=== PATIENT | male | born 1970 | race Caucasian/White ===

== ENCOUNTER 2023-11-22 13:27 | Inpatient (IN) ==
--- NOTE | 2023-11-22 13:34 | ED Triage Note ---
Date of Service November 22, 2023 Provider in Triage Author: Shashi Mccord History of Present Illness This patient was briefly evaluated while in triage. An abbreviated physical exam was performed. This patient is a 53-year-old Male who presents to the ED for evaluation from [facility] n/v/d, abdominal pain x 2 weeks admitted to [facility] x 3 days, given IVF, Zofran, Imodium without improvement creatine reportedly elevated today at 5.5 Physical Exam GENERAL: NAD in wheelchair CARDIOVASCULAR: RRR RESPIRATORY: CTA ABDOMEN: BS x 4. Nontender to palpation. Initial orders for labs and / or imaging were placed and patient was placed in the waiting area until a bed is available. Please see further documentation for the full ED course.
[2023-11-22] MEDS: ONDANSETRON INJ 2 MG/ML 2 ML VIAL IV STA (14:13)
[2023-11-22] MEDS: SODIUM CHLORIDE 0.9% 1,000 ML IV ONE (14:13)
[2023-11-22 14:41] LABS: Basophils # (auto) 0.04 K/uL (0.00-0.20); Basophils % (auto) 0.3 %; Eosinophils # (auto) 0.05 K/uL (0.00-0.50); Eosinophils % (auto) 0.4 %; Hematocrit (blood only) 36.6 % (42.0-52.0); Hemoglobin 12.7 g/dl (14.0-18.0); Immature Granulocytes # (auto) 0.14 K/uL (0.01-0.20); Lymphocytes # (auto) 1.92 K/uL (1.20-3.40); Lymphocytes % (auto) 13.5 %; Mean Corpuscular Hemoglobin 28.8 pg (25.0-34.0); Mean Corpuscular Hgb Conc 34.7 g/dL (32.0-36.0); Mean Platelet Volume 10.6 fL (9.4-12.4); Monocytes # (auto) 1.27 K/uL (0.11-0.59); Monocytes % (auto) 8.9 %; Neutrophils # (auto) 10.78 K/uL (1.40-6.50); Neutrophils % (auto) 75.9 %; Platelet Count 267 K/uL (130-400); RDW Coefficient of Variation 12.1 % (11.5-14.5); RDW Standard Deviation 36.8 fL (36.4-46.3); Red Blood Count 4.41 M/uL (4.70-6.10)
--- NOTE | 2023-11-22 15:05 | Emergency Department Note ---
Impression & Plan BIANKA (acute kidney injury), Vomiting and diarrhea, Acute hyperkalemia, Anemia, Leukocytosis ED Provider Note NAME: AMY [id number] SHANNAN AGE: 53 SEX: M : 1970 ARRIVES VIA: Walk-In INFORMANT: [Patient] ED PROVIDER(S): [Juan Carlos Mead MD] CHIEF COMPLAINT: Dehydration, renal failure HISTORY OF PRESENT ILLNESS: The patient is a 53-year-old male who presents to the ER with 2 weeks of vomiting and diarrhea. He stumbled and fell a few days ago, he does not think he lost consciousness. He was seen at the [facility] and given IV saline. The patient did not really feel much better, he has been weak and washed out. He persists with vomiting and diarrhea. The patient had lab work done today outpatient showing a creatinine of over 5, he has no history of kidney issues. Because of the renal failure, he was sent to the hospital for evaluation. There has been a potential fever the last few weeks intermittently. He has not had chest pain or cough or abdominal pain. He is still making urine although it is quite dark in appearance. PMHx/PSHx/Social Hx: See Below PHYSICAL EXAM: GENERAL: Patient is in no acute distress. HEENT: No acute trauma, normocephalic atraumatic, mucous membranes moist, no nasal congestion. NECK: No stridor, no adenopathy, no meningismus, trachea is midline. LUNGS: Clear to auscultation bilaterally, no wheeze, no rhonchi, breath sounds equal. HEART: Mildly tachycardic, regular rhythm, no murmurs. ABDOMEN: Soft, nontender, no peritonitis. EXTREMITIES: No cyanosis, full range of motion of all the joints without pain or difficulty. NEUROLOGIC: Oriented x 3, no acute motor or sensory deficits, no focal weakness. SKIN: No jaundice, no diaphoresis. Somewhat pale. DIFFERENTIAL DIAGNOSIS: Viral illness, dehydration, renal failure, electrolyte imbalance, C. difficile colitis, medication interaction, among others. EMERGENCY DEPARTMENT PROCEDURES: MEDICAL DECISION MAKING: There is a moderate leukocytosis, this would be consistent with infection. There is a mild anemia present. There is a normal platelet count. Renal panel testing shows acute kidney injury with a creatinine of 4.5. BUN was elevated consistent with dehydration and acute kidney injury. Potassium was elevated at 5.2 however, the value was not in need of emergent correction. Lactic acid level was not elevated making sepsis less likely. There was no concerning liver enzyme elevation. Total CK was not elevated making rhabdomyolysis unlikely. Lipase was slightly elevated at 122. Urinalysis showed some protein and blood, no findings of infection. Chest x-ray did not show CHF or pneumonia. Abdominal and pelvis CT did not show any evidence for hydronephrosis or urinary obstruction. Potential inflammation of the pancreas was seen. The patient was given IV saline, 1 L. He received IV Zofran for nausea. The patient was aggressively managed and watched here in the ED as he did have acute renal failure with some hyperkalemia. He has done well with treatment though and seems to feel improved with the medications prescribed. I did speak with nephrology on-call. There is no need for emergent dialysis. The patient should be hydrated as his renal failure is likely secondary to dehydration. I did speak with case management, I spoke with the patient, the on-call hospitalist was consulted. Prior/Outside records/notes reviewed: Today's nursing home documentation describing his complaints and laboratory findings and the need for an ER referral. ECG per my interpretation: Indication was renal failure. The ECG shows a sinus tachycardia with a rate of 110. There is no acute ST elevation, there were no PVCs. The QTc was 484. Continuous Cardiac Monitoring per my interpretation: An order was placed for continuous cardiac monitoring. The monitor shows a rate of 102 with sinus tachycardia. Imaging/x-ray results per my interpretation: Chest x-ray does not show mediastinal widening, pneumonia or pneumothorax. Chronic Medical/Social conditions affecting care: Currently incarcerated Care/Management discussed with: Case management, the on-call hospitalist. Nephrology on-call-Dr. Briones. Level of care consideration(s): After review of the information above and other included data: --I believe the patient requires escalation of care to admission Critical Care Note: I have personally spent 41 minutes of critical care time in the direct management of this patient. This includes bedside care, interpretation of diagnostic studies, and testing, discussion with consultants, patient, and family members, and other required patient management activities. This 41 minutes is in excess of all separately billable procedures. DISPOSITION: Admission Past Med/Surg History Problem List (Updated 11/22/23 @ 22:23 by Juan Carlos Mead MD) Leukocytosis (Acute) Anemia (Acute) Acute hyperkalemia (Acute) Vomiting and diarrhea (Acute) BIANKA (acute kidney injury) (Acute) Hyperkalemia Medical History Acute kidney injury Social History Smoking Status: Former smoker Second Hand Exposure: No; Do You Dip or Chew Tobacco: No; Hx Alcohol Use: No Hx Substance Use: No Preferred Language: Japanese Communication Ability: Effective Claim Clinician Required: No Beliefs That Will Affect Care: None Current Living Situation: Other Current Living Situation Comment: inmate in nursing home Feels Safe at Home: Yes Assistive Devices: None Allergies Allergies Allergy/AdvReac Type Severity Reaction Status Date / Time No Known Allergies Allergy Unverified 11/22/23 16:09 Results & Data (ED) Vital Signs Vital Signs - 24 hr 11/22/23 13:32 11/22/23 14:03 11/22/23 14:13 Temperature 36.0 C L Temperature Source Temporal Artery Scan Pulse Rate 110 H 102 H Pulse Rate [Right Finger] 92 H Pulse Rhythm Regular Pulse Strength Normal Respiratory Rate 18 20 Respiratory Effort / Characteristics Non-Labored Spontaneous Non-Labored Respiratory Depth Normal Normal Respiratory Pattern Regular Blood Pressure 105/78 Blood Pressure [Right Arm] 127/88 Blood Pressure Mean 87 Blood Pressure Mean [Right Arm] 101 Blood Pressure Position Sitting Pulse Oximetry 95 97 Oxygen Delivery Method Room Air Room Air Oxygen Flow Rate Sepsis Recent Fever Within 48 Hours No Sepsis New/Unexplained Change in Mental Status No Sepsis Action Taken by Nursing No Action Required 11/22/23 14:42 Temperature Temperature Source Pulse Rate Pulse Rate [Right Finger] Pulse Rhythm Pulse Strength Respiratory Rate Respiratory Effort / Characteristics Respiratory Depth Respiratory Pattern Blood Pressure Blood Pressure [Right Arm] Blood Pressure Mean Blood Pressure Mean [Right Arm] Blood Pressure Position Pulse Oximetry 94 Oxygen Delivery Method Nasal Cannula Oxygen Flow Rate 2 Sepsis Recent Fever Within 48 Hours Sepsis New/Unexplained Change in Mental Status Sepsis Action Taken by Skilled Nursing Medications Current Medication List: was personally reviewed by me Laboratory Data Attestation: I reviewed the patient's lab results. 11/22/23 17:11 11/22/23 17:11 Lab Results 11/22/23 Range/Units 14:24 WBC 14.20 H (4.8-10.8) K/ul RBC 4.41 L (4.70-6.10) M/uL Hgb 12.7 L (14.0-18.0) g/dl Hct 36.6 L (42.0-52.0) % MCV 83.0 (80.0-100.0) fL MCH 28.8 (25.0-34.0) pg MCHC 34.7 (32.0-36.0) g/dL RDW Std Deviation 36.8 (36.4-46.3) fL RDW Coeff of Sumi 12.1 (11.5-14.5) % Plt Count 267 (130-400) K/uL MPV 10.6 (9.4-12.4) fL Immature Gran % (Auto) 1.0 % Neut % (Auto) 75.9 % Lymph % (Auto) 13.5 % [place] % (Auto) 8.9 % Eos % (Auto) 0.4 % Baso % (Auto) 0.3 % Neut # (Auto) 10.78 H (1.40-6.50) K/uL Lymph # (Auto) 1.92 (1.20-3.40) K/uL [place] # (Auto) 1.27 H (0.11-0.59) K/uL Eos # (Auto) 0.05 (0.00-0.50) K/uL Baso # (Auto) 0.04 (0.00-0.20) K/uL Immature Gran # (Auto) 0.14 (0.01-0.20) K/uL Sodium 137 (136-145) mmol/L Potassium 5.2 H (3.5-5.1) mmol/L Chloride 104 (98-107) mmol/L Carbon Dioxide 23 (21-32) mmol/L Anion Gap 10 (3-11) BUN 121 H D (6-23) mg/dl Creatinine 4.54 H* D (0.6-1.4) mg/dl Est Cr Clr Drug Dosing 23.9 ml/min Est GFR ( Amer) 15.9 ml/min Est GFR (Non-Af Amer) 13.7 ml/min BUN/Creatinine Ratio 26.7 H (10-20) Glucose 185 H (70-99(Fasting)) mg/dl Calcium 9.5 (8.6-10.3) mg/dl Phosphorus 4.1 (2.5-4.9) mg/dl Magnesium 1.8 (1.7-2.4) mg/dl Total Bilirubin 0.8 (0.2-1.0) mg/dl AST 24 (13-39) U/L ALT 33 (7-52) U/L Alkaline Phosphatase 76 (34-104) U/L Total Creatine Kinase 102 (30-223) U/L Troponin I High Sens 10.1 (0-20) pg/ml Total Protein 7.8 (6.0-8.3) gm/dl Albumin 4.3 (3.4-5.0) gm/dl Globulin 3.5 (2.5-4.0) gm/dl Albumin/Globulin Ratio 1.2 (0.9-2) Lipase 122 H (11-82) U/L Administered Medications Sodium Chloride (Nss) 1,000 mls @ 100 mls/hr IV .Q10H MIKEL Stop: 12/22/23 15:29 Last Admin: 11/22/23 18:31 Dose: 100 mls/hr Documented By: NICHOLAS Pantoprazole Sodium 40 mg/ (Syringe) 10 mls @ 5 mls/min IV Q12H MIKEL Stop: 12/22/23 16:59 Last Admin: 11/22/23 18:31 Dose: 5 mls/min Documented By: NICHOLAS Discontinued Medications Sodium Chloride (Nss) 1,000 mls @ 999 mls/hr IV .Q1H1M ONE Stop: 11/22/23 15:03 Last Infusion: 11/22/23 19:37 Dose: Infused Documented By: Admin: 11/22/23 14:13 Dose: 999 mls/hr Documented By: WILNER Miscellaneous Information (Patient's Allergy Info Needs Entered) 1 each N/A NOW STA Stop: 11/22/23 15:26 Last Admin: 11/22/23 16:15 Dose: 1 each Documented By: EMELYN Ondansetron HCl (Ondansetron Inj 2 Mg/Ml 2 Ml Vial) 4 mg IV NOW STA Stop: 11/22/23 14:04 Last Admin: 11/22/23 14:13 Dose: 4 mg Documented By: WILNER Imaging Data Radiologist's Impression: Abdomen/Pelvis CT 11/22/23 14:[address] WITHOUT CONTRAST CT DOSE: 1506.95 mGy.cm HISTORY: Acute renal failure with nausea and vomiting renal failure TECHNIQUE: Multiaxial CT images of the abdomen and pelvis were performed without contrast. A dose lowering technique was utilized adhering to the principles of ALARA. COMPARISON STUDY: None. FINDINGS: Coronary artery calcifications. Trace right pleural effusion. Mild basilar atelectasis. No free air. The unenhanced spleen, gallbladder and adrenal glands are unremarkable. There is subtle inflammatory stranding involving the pancreatic tail. No pancreatic ductal dilation. Mild hepatic steatosis without evidence of cirrhosis or mass. Mild lung bilateral perinephric stranding. No urolith or hydronephrosis. Atherosclerosis of the aorta. No lymphadenopathy. Mild to moderate distal esophageal wall thickening with adjacent inflammatory stranding. No bowel obstruction or bowel wall thickening. No ascites or mesenteric inflammation. Normal appendix. Small fat filled umbilical hernia. There is no acute fracture identified. Chronic-appearing superior endplate compression/Schmorl's node at L3. Avascular necrosis of the femoral heads without articular collapse. IMPRESSION: 1. No bowel obstruction or bowel wall thickening. 2. Normal appendix. 3. Equivocal acute pancreatitis involving the pancreatic tail. Correlate with serum lipase. 4. Distal esophageal wall thickening suspicious for esophagitis. 5. Trace right pleural effusion with mild right basilar atelectasis. 6. Avascular necrosis of the femoral heads. ACT 112: Negative or not required by law. The above report was generated using voice recognition software. It may contain grammatical, syntax or spelling errors. Electronically signed by: Ralph Baldwin M.D. 11/22/2023 3:42 PM Chest X-Ray 11/22/23 14:03 XR chest 1V portable CLINICAL HISTORY: poss chf TECHNIQUE: Single frontal radiograph of the chest was obtained. Comparison: None available at the time of this dictation. FINDINGS: Exam is limited by underpenetration. The cardiomediastinal silhouette is normal. The lungs are clear. No evidence of pleural effusion or pneumothorax. IMPRESSION: No evidence of CHF. ACT 112: Negative or not required by law. Electronically signed by: Vickey Alegria M.D. 11/22/2023 3:25 PM Discharge Plan Visit Data Chief Complaint: Dehydration Stated Complaint: RENAL FAILURE, SYNCOPE DEHYDRATION ED Provider: Juan Carlos Mead Discharge Problem: BIANKA (acute kidney injury), Vomiting and diarrhea, Acute hyperkalemia, Anemia, Leukocytosis Patient Disposition: Admitted As Inpatient Condition: Fair Discharge Instructions Interventions: ED Discharge Assessment Last Done: 11/22/23 16:15 Discharge Problem: Anemia Qualifiers: Anemia type: unspecified type Qualified Code(s): D64.9 - Anemia, unspecified Leukocytosis Qualifiers: Leukocytosis type: unspecified Qualified Code(s): D72.829 - Elevated white blood cell count, unspecified
[2023-11-22 15:08] LABS: Albumin Globulin Ratio 1.2 (0.9-2); Albumin Level 4.3 gm/dl (3.4-5.0); BUN Creatinine Ratio 26.7 (10-20); Bilirubin,Total 0.8 mg/dl (0.2-1.0); Calcium 9.5 mg/dl (8.6-10.3); Creatinine Clr Calc Pharmacy 23.9 ml/min; Est GFR (African American) 15.9 ml/min; Est GFR (Non-African American) 13.7 ml/min; Globulin 3.5 gm/dl (2.5-4.0); Magnesium 1.8 mg/dl (1.7-2.4); Phosphorus 4.1 mg/dl (2.5-4.9); Potassium 5.2 mmol/L (3.5-5.1); Total Protein 7.8 gm/dl (6.0-8.3)
[2023-11-22] MEDS ORDERED: DEXTROSE 50% 50 ML SYRINGE IV PRN (15:16)
[2023-11-22] MEDS ORDERED: CARBOHYDRATES FOR HYPOGLYCEMIA PO PRN (15:16)
[2023-11-22] MEDS ORDERED: GLUCAGON FOR INJ 1 MG VIAL SQ PRN (15:16)
[2023-11-22] MEDS ORDERED: GLUCOSE 10 TAB/TUBE PO PRN (15:16)
[2023-11-22] MEDS ORDERED: GLUCOSE 40% GEL 15 GM TUBE PO PRN (15:16)
[2023-11-22] MEDS ORDERED: ACETAMINOPHEN 325 MG TAB PO PRN (15:21)
[2023-11-22] MEDS ORDERED: MAGNESIUM HYDROXIDE SUSP 30 ML UDC PO PRN (15:21)
--- NOTE | 2023-11-22 15:26 | XRay Report ---
XR chest 1V portable CLINICAL HISTORY: poss chf TECHNIQUE: Single frontal radiograph of the chest was obtained. Comparison: None available at the time of this dictation. FINDINGS: Exam is limited by underpenetration. The cardiomediastinal silhouette is normal. The lungs are clear. No evidence of pleural effusion or pneumothorax. IMPRESSION: No evidence of CHF. ACT 112: Negative or not required by law. Electronically signed by: Vickey Alegria M.D. 11/22/2023 3:25 PM
--- NOTE | 2023-11-22 15:31 | History & Physical Report ---
Date of Service November 22, 2023 Assessment & Plan (1) Acute kidney injury: Plan: Assessment: 1. Acute kidney injury. Suspected to be prerenal due to hypovolemia and dehydration due to GI illness. Hydrate aggressively. Stat bladder scan. Maloney catheter if necessary. Consult nephrology. Hold all nephrotoxic agents. Repeat renal function later today and again in the morning. 2. Mild hyperkalemia 5.2. Monitor. Hydrate. 3. GI illness consistent with nausea vomiting and diarrhea. Stool cultures are ordered and pending. CT of the abdomen pelvis is ordered and pending. These will need followed up on. Keep patient n.p.o. for now. Check lactic acid l evel. 4. Diabetes mellitus type 2 [id number]. A1c ordered for the a.m. Accu-Cheks every 4 hours. Physician will be notified if less than 80 or greater than 180 for intervention. 5. GERD. IV Protonix has been ordered. IV Zofran ordered. 6. Dyslipidemia. On statin therapy. 7. Mildly elevated lipase probably secondary to decreased clearance due to acute kidney injury. Recheck lipase in the morning. Await CT scan. 8. Anemia. Unknown etiology. Monitor carefully as mild. Will check stools for blood and iron studies. Plan: As discussed above. Please refer to orders for further planning. History of Present Illness Chief Complaint: Acute kidney injury: Nausea, vomiting, diarrhea. Primary Care Provider: JOSETTE Roy This is a 53-year-old male who is an inmate at one of the local presents who has had a 4 to 5-day history of nausea vomiting diarrhea. He was treated at the [facility] with conservative measures. Laboratory studies were obtained today that showed a creatinine greater than 5 with no known previous kidney disease. He was sent to the ER for further evaluation and treatment. Laboratory studies here showed a white count of 14.2. A hemoglobin of 12.7. Potassium 5.2. BUN and creatinine of 121 and 4.54 respectively. Earlier this morning the patient's creatinine was 5.58. Lipase was mildly elevated at 122. CT of the abdomen pelvis was ordered patient to get to go to CT prior to us being called for admission. In addition to stay cultures were ordered after antegradely collecting urine above for infection. Regarding that the patient. Consult nephrology. Hydrate aggressively. Await CT of the abdomen pelvis. We have also recommended a stat lactic acid level. Will repeat a BMP later this afternoon. And await input from nephrology has been consulted via the ER. On review the patient's MAR from the [facility] from the [facility]. It does not appear he is on any nephrotoxic agents. There are no other residents ill with GI illness per the records. Past medical history: Positive for dyslipidemia, diabetes mellitus type 2 [id number], GERD,. Past surgical history: Negative. Social history: [facility] There is no active use of alcohol tobacco or illicit street drugs. Family medical history: Obtained and noncontributory to present illness. CODE STATUS DO NOT RESUSCITATE. The patient is alert and oriented x 3. He states under no circumstances would he want cardiopulmonary resuscitation mechanical ventilation or defibrillation or cardioversion. Therefore per his wishes he is a DNR. Past Med/Surg History Problem List (Updated 11/22/23 @ 15:28 by Joseph Jacobson, PhD, DO) Acute kidney injury Social History Smoking Status: Never smoker Preferred Language: Omani Feels Safe at Home: Yes Review of Systems Review of Systems: A 10 point review of system was obtained and unless otherwise stated here or in history of present illness are negative and noncontributory to chief complaint. Physical Exam Physical Exam: In General: In general this is a 53-year-old male is alert and oriented x 3 at the time my exam accompanied by 2 armed guards at the time of my examination. He only mitts to mild "stomachache" and nausea. No yomaira pain. He denies any other symptomatology except feeling thirsty. HEENT: Normocephalic atraumatic pupils are equal round and reactive to light bilaterally. No scleral icterus no conjunctival injection external auditory canals are patent septum is in the midline nose is without discharge oral mucosa is pink and dry without lesion. NECK: Supple no rigidity no lymphadenopathy no thyromegaly no carotid bruits no JVD no masses. HEART: Regular rate and rhythm I do not appreciate any ectopy or rub. No murmur. LUNGS: Clear to auscultation bilaterally and anteriorly with no evidence of adventitious sounds/wheezes rales or rhonchi. ABDOMEN: Soft nontender, no rebound, no peritoneal signs, positive bowel sounds, no appreciable organomegaly. EXTREMITIES: Intact, no peripheral cyanosis, clubbing or edema. Strength is 5 out of 5 in extremities x4, no pathological reflexes. NEUROLOGICAL: Cranial nerves II through XII are grossly intact with no focal deficit elicited upon examination. No tremor. Results & Data Results & Data Vital Signs (Past 12 Hours) Vital Signs Temp Pulse Pulse Resp BP BP Pulse Ox 11/22/23 14:42 94 11/22/23 14:13 102 H 11/22/23 14:03 92 H 20 127/88 97 11/22/23 13:32 36.0 C L 110 H 18 105/78 95 O2 Del Method O2 Flow Rate 11/22/23 14:42 Nasal Cannula 2 11/22/23 14:13 11/22/23 14:03 Room Air 11/22/23 13:32 Room Air Code Status & VTE Plan Code Status CODE STATUS: DO NOT RESUSCITATE as discussed above under historical. VTE Prophylaxis Plan VTE Prophylaxis will be ordered: Yes PG Care Time/CCT Total # of Minutes Spent Total Time Spent with Patient: Total time spent is greater than 50% in coordination of care (as documented) at patient's floor/unit and/or counseling patient: Coding Level of Care Code 84761 INT INP/OBS CARE 3/75MIN Diagnoses Acute kidney injury N17.9
--- NOTE | 2023-11-22 15:38 | Electrocardiogram Report ---
Test Reason : Blood Pressure : */* mmHG Vent. Rate : 110 BPM Atrial Rate : 110 BPM P-R Int : 144 ms QRS Dur : 90 ms QT Int : 358 ms P-R-T Axes : 8 -38 7 degrees QTcB Int : 484 ms Sinus tachycardia Left axis deviation RSR' or QR pattern in V1 suggests right ventricular conduction delay Abnormal ECG No previous ECGs available Confirmed by Matteo Maurice ([id number]) on 11/22/2023 3:38:11 PM Referred By: Confirmed By: Matteo Maurice
--- NOTE | 2023-11-22 15:43 | CT Scan Report ---
ABDOMEN AND PELVIS CT WITHOUT CONTRAST CT DOSE: 1506.95 mGy.cm HISTORY: Acute renal failure with nausea and vomiting renal failure TECHNIQUE: Multiaxial CT images of the abdomen and pelvis were performed without contrast. A dose lo wering technique was utilized adhering to the principles of ALARA. COMPARISON STUDY: None. FINDINGS: Coronary artery calcifications. Trace right pleural effusion. Mild basilar atelectasis. No free air. The unenhanced spleen, gallbladder and adrenal glands are unremarkable. There is subtle inf lammatory stranding involving the pancreatic tail. No pancreatic ductal dilation. Mild hepatic steato sis without evidence of cirrhosis or mass. Mild lung bilateral perinephric stranding. No urolith or hydronephrosis. Atherosclerosis of the aorta . No lymphadenopathy. Mild to moderate distal esophageal wall thickening with adjacent inflammatory s tranding. No bowel obstruction or bowel wall thickening. No ascites or mesenteric inflammation. Elizabeth l appendix. Small fat filled umbilical hernia. There is no acute fracture identified. Chronic-appeari ng superior endplate compression/Schmorl's node at L3. Avascular necrosis of the femoral heads withou t articular collapse. IMPRESSION: 1. No bowel obstruction or bowel wall thickening. 2. Normal appendix. 3. Equivocal acute pancreatitis involving the pancreatic tail. Correlate with serum lipase. 4. Distal esophageal wall thickening suspicious for esophagitis. 5. Trace right pleural effusion with mild right basilar atelectasis. 6. Avascular necrosis of the femoral heads. ACT 112: Negative or not required by law. The above report was generated using voice recognition software. It may contain grammatical, syntax o r spelling errors. Electronically signed by: Ralph Baldwin M.D. 11/22/2023 3:42 PM
--- NOTE | 2023-11-22 15:55 | Nephrology Consultation ---
Date of Consultation November 22, 2023 Assessment & Plan (1) Acute kidney injury: (2) Hyperkalemia: Plan 53-year-old gentleman admitted with acute kidney injury most likely secondary to volume depletion with 2 weeks history of vomiting and diarrhea. No prior history of CKD, initially creatinine was 5.6 mg/dl which already improved to 4.5, has mild electrolyte abnormality including hyperkalemia and metabolic acidosis which also improved. Urinalysis pending. CT abdomen pelvis without contrast with no significant postrenal obstruction. -- Continue on IV fluid, encourage p.o. intake as able, once NPO status removed. -- Check CPK -- Waiting for urinalysis to check for any evidence of significant proteinuria or hematuria suggestive of any intrinsic renal vasculitis although seems unlikely as creatinine already started to improve, blood pressure well- controlled and no sign of systemic vasculitis. -- avoid RICHARD inhibitor/ARB/aldosterone antagonist at this time Thank you for the consultation to care for Mr. Olson. History of Present Illness Reason for Consultation: Acute kidney injury, hyperkalemia. History of Present Illness Mr. Cornelius Olson is a 53-year-old male with no history of CKD, past medical history significant for hypertension, diabetes, dyslipidemia and GERD admitted to the hospital with acute kidney injury, volume depletion and hyperkalemia. Nephrology consult requested for management of BIANKA and hyperkalemia. EMR records were reviewed in detail during patient's visit. [facility] with history of nausea, vomiting and diarrhea for 2 weeks. He was getting treated conservatively at the [facility] however he was brought to ER today with ongoing symptoms and concern for volume depletion and generalized weakness. Lab in ER initially showed mild leukocytosis, WBC 14.2, hemoglobin 12.7. Creatinine 5.6 mg/dl, BUN 141, potassium 5.[address] abdomen pelvis without postrenal obstruction. Questionable pancreatitis on CT and mildly elevated lipase, normal lactate, LFT. Urinalysis pending. Blood pressure has been acceptable without significant hypotension. No h/o Regular NSAID use, diuretics, ACEI/ARB. No h/o UTI, nephrolithiasis. Clinically he was noted to be volume depleted and started on IV normal saline. Stool study pending. Non smoker. No known family history of CKD, ESKD. Past medical history is significant for type 2 diabetes, dyslipidemia and GERD. Repeat lab done this afternoon showing slight improvement in kidney function, creatinine down to 4.5, BUN 121 but potassium remains slightly elevated at 5.2. Blood pressure acceptable. Overall continues to feel poorly, reports voiding as usual. 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 Beliefs That Will Affect Care: None Current Living Situation: Other Current Living Situation Comment: inmate in jail Feels Safe at Home: Yes Assistive Devices: None Review of Systems Review of Systems: All systems reviewed & are unremarkable except as noted in Subjective Physical Exam Constitutional: WD/WN, vitals as above no acute distress Eyes: + anicteric sclerae Neck: normal visual inspection Respiratory: no respiratory distress Auscultation: lungs clear to auscultation bilaterally Cardiovascular: RRR, no murmur, no edema Gastrointestinal (Abdomen): Inspection/Auscultation: abdomen normal to inspection Percussion/Palpation: abdomen soft; abdomen nontender Musculoskeletal: Extremities: extremities normal to inspection Skin: no rashes, warm and dry Neurologic: no focal motor deficits and not confused Psychiatric: Orientation: alert and oriented x 3 Affect: euthymic affect Results & Data Vital Signs (Past 12 Hours) Vital Signs Temp Pulse Pulse Resp BP BP Pulse Ox 11/22/23 14:42 94 11/22/23 14:13 102 H 11/22/23 14:03 92 H 20 127/88 97 11/22/23 13:32 36.0 C L 110 H 18 105/78 95 O2 Del Method O2 Flow Rate 11/22/23 14:42 Nasal Cannula 2 11/22/23 14:13 11/22/23 14:03 Room Air 11/22/23 13:32 Room Air PG Care Time/CCT Total # of Minutes Spent Total Time Spent with Patient: Total time spent is greater than 50% in coordination of care (as documented) at patient's floor/unit and/or counseling patient: Coding Level of Care Code 15748 INT INP/OBS CARE 3/75MIN Diagnoses Acute kidney injury N17.9 Hyperkalemia E87.5
[2023-11-22 15:59] LABS: Troponin I High Sensitivity 10.1 pg/ml (0-20)
[2023-11-22 16:05] LABS: Appearance Urine Clear (Clear); Bacteria Urine Automated None Seen (None Seen); Bilirubin Urine Negative (Negative); Blood Urine Trace (Negative); Cast Urine Automated 0-2 /lpf (0-2); Color Urine Yellow; Epithelial Cell Urine Auto 0-2 /hpf (0-2); Glucose Urine UA 2+ (Negative); Ketones Urine Negative (Negative); Leukocyte Esterase Urine Negative (Negative); Nitrite Urine Negative (Negative); Protein Urine 1+ (Negative); RBC Urine Automated 0-2 /hpf (0-2); Specific Gravity Urine 1.017 (1.000-1.030); Urobilinogen Urine Negative (Negative); WBC Urine Automated 0-5 /hpf (0-5); pH Urine 5.5 (4.5-7.5)
[2023-11-22] MEDS: Patient's ALLERGY Info needs ENTERED STA (16:15)
[2023-11-22 17:30] LABS: Hemoglobin 12.5 g/dl (14.0-18.0)
[2023-11-22 17:45] LABS: Potassium 4.5 mmol/L (3.5-5.1)
[2023-11-22 17:46] LABS: BUN Creatinine Ratio 28.9 (10-20); Calcium 9.5 mg/dl (8.6-10.3); Creatinine Clr Calc Pharmacy 26.5 ml/min; Est GFR (African American) 18.1 ml/min; Est GFR (Non-African American) 15.6 ml/min
[2023-11-22] MEDS: SODIUM CHLORIDE 0.9% 1,000 ML IV SCH (18:31)
[2023-11-22] MEDS: PANTOprazole 40 MG in SYRINGE 0 ML IV SCH (18:31)
[2023-11-23 06:47] LABS: Basophils # (auto) 0.03 K/uL (0.00-0.20); Basophils % (auto) 0.3 %; Eosinophils # (auto) 0.05 K/uL (0.00-0.50); Eosinophils % (auto) 0.4 %; Hematocrit (blood only) 35.4 % (42.0-52.0); Hemoglobin 12.3 g/dl (14.0-18.0); Immature Granulocytes # (auto) 0.12 K/uL (0.01-0.20); Lymphocytes # (auto) 2.13 K/uL (1.20-3.40); Lymphocytes % (auto) 18.5 %; Mean Corpuscular Hemoglobin 29.1 pg (25.0-34.0); Mean Corpuscular Hgb Conc 34.7 g/dL (32.0-36.0); Mean Corpuscular Volume 83.9 fL (80.0-100.0); Monocytes # (auto) 0.93 K/uL (0.11-0.59); Monocytes % (auto) 8.1 %; Neutrophils # (auto) 8.25 K/uL (1.40-6.50); Neutrophils % (auto) 71.7 %; Platelet Count 251 K/uL (130-400); RDW Coefficient of Variation 12.2 % (11.5-14.5); RDW Standard Deviation 37.1 fL (36.4-46.3); Red Blood Count 4.22 M/uL (4.70-6.10); White Blood Count 11.51 K/ul (4.8-10.8)
[2023-11-23 07:07] LABS: Estimated Average Glucose 177 mg/dl; Hemoglobin A1C 7.8 % (4.5-5.6)
[2023-11-23 07:11] LABS: Albumin Globulin Ratio 1.3 (0.9-2); Albumin Level 4.2 gm/dl (3.4-5.0); BUN Creatinine Ratio 28.1 (10-20); Bilirubin,Total 0.8 mg/dl (0.2-1.0); Calcium 9.3 mg/dl (8.6-10.3); Chol HDL Ratio 4.1 (0-5); Est GFR (African American) 25.2 ml/min; Est GFR (Non-African American) 21.8 ml/min; Globulin 3.3 gm/dl (2.5-4.0); Potassium 4.8 mmol/L (3.5-5.1); Total Protein 7.5 gm/dl (6.0-8.3)
[2023-11-23 07:24] LABS: Thyroid Stimulating Hormone 2.608 uIu/ml (0.300-4.500)
[2023-11-23] MEDS ORDERED: PANTOprazole 40 MG in SYRINGE 0 ML IV SCH (11:00)
--- NOTE | 2023-11-23 11:43 | Nephrology Progress Note ---
Date of Service November 23, 2023 Assessment & Plan (1) Acute kidney injury: (2) Hyperkalemia: Plan 53-year-old gentleman admitted with acute kidney injury most likely secondary to volume depletion with 2 weeks history of vomiting and diarrhea. No prior history of CKD, initially creatinine was 5.6 mg/dl which already improved to 4.5, has mild electrolyte abnormality including hyperkalemia and metabolic acidosis which also improved. Urinalysis with low-grade proteinuria and microscopic hematuria. CT abdomen pelvis without contrast with no significant postrenal obstruction. Kidney function continues to improve, electrolyte acceptable. Blood pressure well-controlled. -- Continue on IV fluid for now, tentative plan to start orally soon, if able to tolerate p.o. intake, okay to discontinue IV fluid. -- avoid RICHARD inhibitor/ARB/aldosterone antagonist at this time -- Repeat urinalysis prior to discharge to make sure microscopic hematuria resolved. Admission and Anticipated Discharge Date Admission Date: November 22, 2023 Ana Shields was seen this morning. Overall he reports feeling better although still thirsty as he remains n.p.o. but continued on IV fluid. Diarrhea resolved, denies vomiting or abdominal pain. Blood pressure stable. Decent urine output. Kidney function continues to improve rapidly, creatinine down to 3.2, kenzie ctrolyte acceptable. Review of Systems Review of Systems: delivery of system was otherwise unremarkable. Physical Exam Constitutional: WD/WN, vitals as above no acute distress Eyes: + anicteric sclerae Respiratory: no respiratory distress Auscultation: lungs clear to auscultation bilaterally Cardiovascular: RRR, no murmur, no edema Musculoskeletal: Extremities: extremities normal to inspection Skin: no rashes, warm and dry Neurologic: no focal motor deficits Psychiatric: Orientation: alert and oriented x 3 Affect: euthymic affect Results & Data Vital Signs (Past 12 Hours) Vital Signs Temp Pulse Pulse Resp BP Pulse Ox O2 Del Method 11/23/23 11:18 36.7 C 87 15 124/83 95 Room Air 11/23/23 07:31 95 H 11/23/23 07:22 36.7 C 97 H 18 115/75 93 Room Air 11/23/23 02:39 36.7 C 97 H 18 106/69 93 Room Air 11/23/23 00:31 Room Air 11/22/23 23:42 94 H PG Care Time/CCT Total # of Minutes Spent Total Time Spent with Patient: Total time spent is greater than 50% in coordination of care (as documented) at patient's floor/unit and/or counseling patient: Coding Level of Care Code 48476 SUB INP/OBS CARE 2/35MIN Diagnoses Acute kidney injury N17.9 Hyperkalemia E87.5
--- NOTE | 2023-11-23 14:12 | Hospitalist Progress Note ---
Date of Service November 23, 2023 Assessment & Plan (1) Acute kidney injury: Plan: Suspected to be prerenal due to hypovolemia and dehydration due to GI illness. Mild hyperkalemia 5.2. Creatinine elevated at 5.5 on arrival and now improved to 3.1 with IV fluid hydration CT abdomen/pelvis no obstruction. CK normal Consult nephrology appreciated Hold all nephrotoxic agents-he is on metformin at home which is on hold Continue normal saline at 100 mL/h Repeat UA as there was trace blood but no RBCs-ensure resolution of microscopic hematuria (2) Vomiting and diarrhea: Plan: Likely infectious GI illness for the last 1 to 2 weeks with an/V/D. No recent antibiotic use but he does live in a longterm and could have been exposed to others with illness Lactate normal Stool PCR and C. difficile ordered but not yet collected Nausea vomiting and diarrhea greatly improved with IV fluids and antiemetics CT of the abdomen pelvis no obstruction or colitis/enteritis but did have mild pancreatitis of the tail. Triglycerides only minimally elevated, calcium normal, no evidence of gallstones and no alcohol use, no particularly offending medications Does have evidence of esophagitis on CT scan-giving Protonix IV twice daily Continue antiemetics as needed Continue IV fluid hydration Slowly advance diet today to full liquids (3) Esophagitis: Plan: Continue PPI twice daily (4) Acute pancreatitis: Plan: Mild, lipase trending downward, could be related to infectious gastroenteritis With some mild abdominal pain Continue IV fluid hydration (5) Diabetes mellitus type 2 in obese: Plan: Hemoglobin A1c elevated at 7.8%. He is on metformin as an outpatient which is now on hold Add on NovoLog with correction factor only Accu-Cheks (6) Avascular necrosis of bones of both hips: Plan: Found on CT abdomen/pelvis. Patient does complain of chronic hip pain but he is not yet ready to do hip replacement (7) Hyperlipidemia: Plan: Holding statin from home Plan DVT prophylaxis add Lovenox SQ Disposition-continued stay Admission and Anticipated Discharge Date Admission Date: November 22, 2023 Subjective Patient reports no further vomiting or diarrhea since admission nausea is improved with medication. He did just tolerate clear liquids diet. Still has some mild upper abdominal tenderness. No blood in the stool or vomit. Telemetry with normal sinus rhythm with rates in the 90s Physical Exam Constitutional: WD/WN, vitals as above Respiratory: normal respiratory effort, lungs clear to auscultation Cardiovascular: RRR, no murmur, no edema Gastrointestinal (Abdomen): Inspection/Auscultation: abdomen normal to inspection; abdomen not distended Percussion/Palpation: + abdomen tender (Mild in epigastric region without guarding or rebound) and abdomen soft Psychiatric: A+Ox3, euthymic affect Results & Data Results & Data Vital Signs (Past 12 Hours) Vital Signs Temp Pulse Pulse Resp BP Pulse Ox O2 Del Method 11/23/23 11:18 36.7 C 87 15 124/83 95 Room Air 11/23/23 07:31 95 H 11/23/23 07:22 36.7 C 97 H 18 115/75 93 Room Air 11/23/23 02:39 36.7 C 97 H 18 106/69 93 Room Air Laboratory Results CBC, BMP, lactate, hemoglobin A1c, CK, LFTs, lipase reviewed PG Care Time/CCT Total # of Minutes Spent Total Time Spent with Patient: Total time spent is greater than 50% in coordination of care (as documented) at patient's floor/unit and/or counseling patient: Coding Level of Care Code 19475 SUB INP/OBS CARE 2/35MIN Diagnoses Acute kidney injury N17.9 Vomiting and diarrhea R11.10; R19.7 Esophagitis K20.90 Acute pancreatitis K85.90 Diabetes mellitus type 2 in obese E11.69; E66.9 Avascular necrosis of bones of both hips M87.051; M87.052 Hyperlipidemia E78.5
[2023-11-23 17:11] LABS: Appearance Urine Clear (Clear); Bilirubin Urine Negative (Negative); Blood Urine Negative (Negative); Color Urine Yellow; Glucose Urine UA 3+ (Negative); Ketones Urine Negative (Negative); Leukocyte Esterase Urine Negative (Negative); Nitrite Urine Negative (Negative); Protein Urine Negative (Negative); Specific Gravity Urine 1.019 (1.000-1.030); Urobilinogen Urine Negative (Negative); pH Urine 5.5 (4.5-7.5)
[2023-11-23] MEDS: INSULIN ASPART PER UNIT CHARGE SC SCH (18:10)
[2023-11-23] MEDS: HEPARIN SOD 5,000 UNIT/0.5 ML VIAL SQ SCH (20:57)
[2023-11-23] MEDS: ONDANSETRON INJ 2 MG/ML 2 ML VIAL IV PRN (21:06)
[2023-11-24 07:12] LABS: Basophils # (auto) 0.05 K/uL (0.00-0.20); Basophils % (auto) 0.4 %; Eosinophils # (auto) 0.16 K/uL (0.00-0.50); Eosinophils % (auto) 1.4 %; Hematocrit (blood only) 33.3 % (42.0-52.0); Hemoglobin 11.6 g/dl (14.0-18.0); Immature Granulocytes # (auto) 0.16 K/uL (0.01-0.20); Immature Granulocytes % (auto) 1.4 %; Lymphocytes # (auto) 2.73 K/uL (1.20-3.40); Lymphocytes % (auto) 24.4 %; Mean Corpuscular Hgb Conc 34.8 g/dL (32.0-36.0); Mean Corpuscular Volume 83.3 fL (80.0-100.0); Mean Platelet Volume 10.6 fL (9.4-12.4); Monocytes # (auto) 0.86 K/uL (0.11-0.59); Monocytes % (auto) 7.7 %; Neutrophils # (auto) 7.22 K/uL (1.40-6.50); Neutrophils % (auto) 64.7 %; Platelet Count 247 K/uL (130-400); RDW Coefficient of Variation 12.1 % (11.5-14.5); RDW Standard Deviation 36.8 fL (36.4-46.3); White Blood Count 11.18 K/ul (4.8-10.8)
[2023-11-24 07:39] LABS: BUN Creatinine Ratio 25.4 (10-20); Calcium 8.9 mg/dl (8.6-10.3); Creatinine Clr Calc Pharmacy 58.6 ml/min; Est GFR (African American) 47.1 ml/min; Est GFR (Non-African American) 40.7 ml/min; Magnesium 1.4 mg/dl (1.7-2.4); Potassium 4.4 mmol/L (3.5-5.1)
[2023-11-24] MEDS: MAGNESIUM SULFATE / D5W 1 GM/100 ML BAG IV SCH (09:03)
--- NOTE | 2023-11-24 10:46 | Nephrology Progress Note ---
Date of Service November 24, 2023 Assessment & Plan (1) Acute kidney injury: (2) Hyperkalemia: Plan 53-year-old gentleman admitted with acute kidney injury most likely secondary to volume depletion with 2 weeks history of vomiting and diarrhea. No prior history of CKD, initially creatinine was 5.6 mg/dl which already improved to 4.5, has mild electrolyte abnormality including hyperkalemia and metabolic acidosis which also improved. Urinalysis with low-grade proteinuria and microscopic hematuria. CT abdomen pelvis without contrast with no significant postrenal obstruction. Kidney function continues to improve, electrolyte acceptable. Blood pressure well-controlled. --Encourage p.o. intake --Continue to avoid RICHARD inhibitor/ARB/aldosterone antagonist at this time -- Repeat urinalysis today -- Expect kidney function to continue to improve. Admission and Anticipated Discharge Date Admission Date: November 22, 2023 Ana Shields was seen this morning. He complain of symptoms of heartburn, reports tolerating clear liquids and soft diet. Decent urine output. Diarrhea resolved, denies vomiting or abdominal pain. Blood pressure stable. Kidney function continues to improve rapidly, creatinine down to 1.9 mg/dl Review of Systems Review of Systems: Detailed review of system was otherwise unremarkable. Physical Exam Constitutional: WD/WN, vitals as above no acute distress Respiratory: no respiratory distress Auscultation: lungs clear to auscultation bilaterally Cardiovascular: RRR, no murmur, no edema Musculoskeletal: Extremities: extremities normal to inspection Skin: no rashes, warm and dry Neurologic: no focal motor deficits Psychiatric: Orientation: alert and oriented x 3 Affect: euthymic affect Results & Data Vital Signs (Past 12 Hours) Vital Signs Temp Pulse Pulse Resp BP Pulse Ox O2 Del Method 11/24/23 07:50 92 H 11/24/23 07:48 Room Air 11/24/23 07:45 37.1 C 93 H 16 110/75 95 Room Air 11/24/23 02:49 36.9 C 87 18 123/84 95 Room Air 11/23/23 23:22 88 PG Care Time/CCT Total # of Minutes Spent Total Time Spent with Patient: Total time spent is greater than 50% in coordination of care (as documented) at patient's floor/unit and/or counseling patient: Coding Level of Care Code 52475 SUB INP/OBS CARE 2/35MIN Diagnoses Acute kidney injury N17.9 Hyperkalemia E87.5
[2023-11-24 11:39] LABS: Appearance Urine Clear (Clear); Bilirubin Urine Negative (Negative); Blood Urine Negative (Negative); Color Urine Yellow; Glucose Urine UA 3+ (Negative); Ketones Urine Negative (Negative); Leukocyte Esterase Urine Negative (Negative); Nitrite Urine Negative (Negative); Protein Urine Negative (Negative); Specific Gravity Urine 1.018 (1.000-1.030); Urobilinogen Urine Negative (Negative); pH Urine 5.5 (4.5-7.5)
[2023-11-24] MEDS: PARoxetine HCL 20 MG TAB PO SCH (13:09)
--- NOTE | 2023-11-24 14:20 | Discharge Summary ---
Discharge Summary Date of Service November 24, 2023 Principal Dx & Hospital Course #1 = Principal Diagnosis (1) Acute kidney injury: Suspected to be prerenal due to hypovolemia and dehydration due to GI illness. Mild hyperkalemia 5.2. Creatinine elevated at 5.5 on arrival and now much improved to 1.8 with IV fluid hydration CT abdomen/pelvis no obstruction. CK normal Consult nephrology appreciated Hold all nephrotoxic agents-he is on metformin at home which is on hold until repeat renal function back to normal at senior living after discharge Repeat UA as there was trace blood initially but no RBCs-repeat UA x 2 shows resolution of microscopic hematuria Hypomagnesemia from poor po intake--> replaced with IV magnesium Check BMP, magnesium at senior living on 2-3 days to ensure creatinine completely back to baseline (2) Vomiting and diarrhea: Likely infectious GI illness for the last 1 to 2 weeks with an/V/D. No recent antibiotic use but he does live in a senior living and could have been exposed to others with illness Lactate normal Stool PCR and C. difficile ordered but never collected as he did not have any further diarrhea after admission Nausea vomiting and diarrhea now resolved with IV fluids and antiemetics. He is tolerating low fat diet at time of discharge CT of the abdomen pelvis no obstruction or colitis/enteritis but did have mild pancreatitis of the tail. Triglycerides only minimally elevated, calcium marcela l, no evidence of gallstones and no alcohol use, no particularly offending medications Does have evidence of esophagitis on CT scan-giving Protonix IV twice daily and recommend increasing home PPI to bid for at least 1 month (3) Esophagitis: Continue PPI twice daily x 1 month, then return to once daily (4) Acute pancreatitis: Mild, lipase trending downward, could be related to infectious gastroenteritis With some mild epigastric abdominal pain now improved received IV fluid hydration, bowel rest now on low fat diet x 1 week (5) Diabetes mellitus type 2 in obese: Hemoglobin A1c elevated at 7.8%. He is on metformin as an outpatient which is now on hold received sliding scale Novolog f/u with PCP to resume metformin after renal function improved (6) Avascular necrosis of bones of both hips: Found on CT abdomen/pelvis. Patient does complain of chronic hip pain but he is not yet ready to do hip replacement (7) Hyperlipidemia: resume statin from home on discharge Plan DVT prophylaxis-heaprin SQ Disposition-dc to senior living. Discussed care with senior living medical detail representative by phone on day of discharge Notes For Next Care Provider Check BMP, magnesium in 2-3 days Resume metformin once train driver improved to < 1.5 Medication Changes From Visit Increased Protonix to 40mg po bid x 1 month, then resume 40mg daily HOLD metformin until renal function improved Admission HPI Per Admitting Provider This is a 53-year-old male who is an inmate at one of the local presents who has had a 4 to 5-day history of nausea vomiting diarrhea. He was treated at the [facility] with conservative measures. Laboratory studies were obtained today th at showed a creatinine greater than 5 with no known previous kidney disease. He was sent to the ER for further evaluation and treatment. Laboratory studies here showed a white count of 14.2. A hemoglobin of 12.7. Potassium 5.2. BUN and creatinine of 121 and 4.54 respectively. Earlier this morning the patient's creatinine was 5.58. Lipase was mildly elevated at 122. CT of the abdomen pelvis was ordered patient to get to go to CT prior to us being called for admission. In addition to stay cultures were ordered after antegradely collecting urine above for infection. Regarding that the patient. Consult nephrology. Hydrate aggressively. Await CT of the abdomen pelvis. We have also recommended a stat lactic acid level. Will repeat a BMP later this afternoon. And await input from nephrology has been consulted via the ER. On review the patient's MAR from the [facility] from the [facility]. It does not appear he is on any nephrotoxic agents. There are no other residents ill with GI illness per the records. Past medical history: Positive for dyslipidemia, diabetes mellitus type 2 [id number]-xzryaivue, GERD,. Past surgical history: Negative. Social history: The patient is in the infirmdewar at the senior living currently. There is no active use of alcohol tobacco or illicit street drugs. Family medical history: Obtained and noncontributory to present illness. CODE STATUS DO NOT RESUSCITATE. The patient is alert and oriented x 3. He states under no circumstances would he want cardiopulmonary resuscitation mechanical ventilation or defibrillation or cardioversion. Therefore per his wishes he is a DNR. Discharge Exam Constitutional WD/WN, vitals as above Respiratory normal respiratory effort, lungs clear to auscultation Cardiovascular RRR, no murmur, no edema Gastrointestinal (Abdomen) normal bowel sounds, soft, nontender, no hepatosplenomegaly Psychiatric A+Ox3, euthymic affect Discharge Plan Discharge Items [facility]position[facility] Reason For Visit: oracio Discharge Diagnosis: Acute kidney injury Gastroenteritis Mild acute pancreatitis Esophagitis Condition on Discharge: Fair Activity: Resume your previous activity Non-emergency contact: Primary Care Provider Call non-emergency contact if: you have any medication questions and your symptoms worsen Follow-up/Referrals: Kirill FINCH [Primary Care Provider] - Diet: Low Fat Diet Comment: x 1 week then gradually return to regular diet Addtl Attending Provider Instructions: Check BMP, magnesium in 2-3 days to ensure renal function and magnesium levels continue to trend toward normal. Continue to hydrate orally aggressively. Can take Zofran as needed for nausea. Please increase the protonix to twice a day for the esophagitis seen on CT. You had a mild pancreatitis which may have been related to your gastroenteritis. Nothing further needs to be done for this except to remain on a low fat diet. Pending Studies at Discharge: No Stand-Alone Forms: My [facility] Skilled Items Patient informed of condition?: Yes Discharge Level of Care: Other Communicable Disease: No Discharge Prognosis: Improving Lines: None Urinary Catheter: No Medications and DC Order Prescriptions: Continued atorvastatin 40 mg Tablet 40 mg PO HS paroxetine HCl [Paxil] 40 mg Tablet 40 mg PO DAILY ondansetron 4 mg Tablet,Disintegrating 4 mg PO Q6 PRN (Reason: Nausea And Vomiting) hydroxyzine pamoate 25 mg Capsule 75 mg PO HS Changed pantoprazole 40 mg Tablet,Delayed Release (Dr/Ec) 40 mg PO BID Qty: 60 0RF Held metformin 1,000 mg Tablet 1,000 mg PO BID Hold Instructions: Resume on 12/01/23. Hold until kidney function completely back to normal Discharge Orders: Discharge Order (Routine); Ordered 11/24/23 Ordered By: Radha Ya/Other Patient Handouts: Type 2 Diabetes Admission Data Admit Date/Time: 11/22/23 15:21 Attending Provider: Radha Beaver Admit Provider: Joseph Jacobson Primary Care Provider: Kirill IFNCH Other Providers: Joseph Jacobson; Mirian Briones Hospital Stay Data Consultations 11/22/23 14:42 ED Decision to Admit Stat 11/22/23 15:18 Consult Nephrology Routine 11/22/23 15:30 ED Decision to Admit Stat Diagnostic Imagining Performed 11/22/23 14:02 CT abd pelvis wo con Stat Pending Results Patient Have Any Pending Studies at Discharge: No Discharge Instructions Given to Patient (Per Discharging Provider) Check BMP, magnesium in 2-3 days to ensure renal function and magnesium levels continue to trend toward normal. Continue to hydrate orally aggressively. Can take Zofran as needed for nausea. Please increase the protonix to twice a day for the esophagitis seen on CT. You had a mild pancreatitis which may have been related to your gastroenteritis. Nothing further needs to be done for this except to remain on a low fat diet. Total Time Total Time Spent Total Time Spent (In Minutes): 35 min Total Time Includes: Examination of the Patient, Discharge Planning, Medication Reconciliation and Communication With Other Providers Coding Level of Care Code 25654 INP/OBS DISCH >30 MIN Diagnoses Acute kidney injury N17.9 Vomiting and diarrhea R11.10; R19.7 Esophagitis K20.90 Acute pancreatitis K85.90 Diabetes mellitus type 2 in obese E11.69; E66.9 Avascular necrosis of bones of both hips M87.051; M87.052 Hyperlipidemia E78.5
[2023-11-24] MEDS ORDERED: hydrOXYzine HCl 25 MG TAB PO SCH (21:00)
[2023-11-24] MEDS ORDERED: ATORVASTATIN 40 MG TAB PO SCH (21:00)
== END 2023-11-24 16:43 | DRG 682 ==
LOC: ED 13:27 → 2N 15:21 → SUATTDRO 15:21 → 2N 16:15